=== PATIENT | male | born 1965 | race Two or more races ===

== ENCOUNTER 2021-12-28 18:37 | Inpatient (IN) | payer MEDICARE ==
[~2021-12-28] VITALS: Ht 152.4 cm; Wt 60.4 kg
[2021-12-28] MEDS ORDERED: ACCU-CHEK COMFORT CURVE STRIP VI ONE (19:00)
[2021-12-28] MEDS ORDERED: SODIUM CHLORIDE 0.9% 500 ML IV ONE (19:45)
[2021-12-28 20:24] LABS: Hematocrit 30.9 % (41.0-53.0); Hemoglobin 8.9 g/dL (13.5-17.5); Mean Corpuscular Hemoglobin 21.8 pg (28.0-32.0); Mean Corpuscular Hgb Conc. 28.9 g/dL (32.0-36.0); Mean Corpuscular Volume 75.6 fL (80.0-100.0); Red Blood Cells 4.09 10^6/uL (4.5-5.90); White Blood Cell 4.3 10^3/uL (4.4-10.8)
[2021-12-28 20:37] LABS: Red Cell Distribution Width 25.1 % (11.8-14.3)
[2021-12-28 20:38] LABS: Albumin 2.7 g/dL (3.4-5.0); Calcium 8.3 mg/dL (8.5-10.1); Potassium 4.5 mmol/L (3.5-5.1)
[2021-12-28 20:39] LABS: Basophils % (manual) 0 (0.0-2.0); Blast Cells 0; Eosinophils % (manual) 0 (0-7); Metamyelocytes % 0; Myelocytes % 0; Promyelocytes % 0; Reactive Lymphocytes 0
[2021-12-28 20:41] LABS: Bilirubin, Total 0.4 mg/dL (0.2-1.0); Total Protein 6.3 g/dL (6.4-8.2)
[2021-12-28 21:38] LABS: Band Neutrophils % (manual) 3; Lymphocytes % (manual) 20 (10.0-50.0); Monocytes % (manual) 2 (0-12)
[2021-12-28] MEDS ORDERED: ONDANSETRON HCL 4 MG/2 ML VIAL IV PRN (21:45)
[2021-12-28] MEDS ORDERED: ACETAMINOPHEN 325 MG TAB PO PRN ×2 (21:45→22:00)
[2021-12-28] MEDS ORDERED: cefTRIAXone 1GM/50ML D5W 50 ML IV ONE (22:00)
[2021-12-28] MEDS: SOD CHL 0.45% 1,000 ML IV SCH (22:17)
[2021-12-28 22:43] LABS: Urine Bacteria NONE SEEN /hpf (None Seen); Urine Blood 1+ /uL (Negative); Urine Hyaline Cast FEW /lpf (0 - 2); Urine Specific Gravity 1.017 (1.001-1.035); Urine WBC 1 /hpf (0 - 3)
[2021-12-28] MEDS ORDERED: AZITHROMYCIN 500MG/ 250ML 250 ML IV ONE (22:45)
[2021-12-28 23:02] LABS: Amphetamine Screen, Urine NEGATIVE (NEGATIVE); Barbiturate Scree,Urine NEGATIVE (NEGATIVE); Benzodiazephine Screen, Urine NEGATIVE (NEGATIVE); Cannabinoid Screen, Urine NEGATIVE (NEGATIVE); Cocaine Screen, Urine NEGATIVE (NEGATIVE); Opiate Scree,Urine NEGATIVE (NEGATIVE); Phencyclidine Screen, Urine NEGATIVE (NEGATIVE)
[2021-12-28] MEDS: DOCUSATE SOD 100 MG CAP PO SCH (23:55)
[2021-12-29 06:02] LABS: Basophils # (auto) 0 10 ^3/uL (0-0.2); Eosinophils # (auto) 0 10 ^3/uL (0-0.8); Eosinophils % (auto) 0.1 % (0.0-7.0); Hemoglobin 8.1 g/dL (13.5-17.5)
[2021-12-29 06:05] LABS: Basophils % (auto) 0.9 % (0.0-2.0); Hematocrit 26.6 % (41.0-53.0); Lymphocytes # (auto) 0.6 10 ^3/uL (0.4-5.4); Lymphocytes % (auto) 13.9 % (10.0-50.0); Mean Corpuscular Hemoglobin 22.7 pg (28.0-32.0); Mean Corpuscular Hgb Conc. 30.5 g/dL (32.0-36.0); Mean Corpuscular Volume 74.6 fL (80.0-100.0); Monocytes # (auto) 0.4 10 ^3/uL (0-1.3); Monocytes % (auto) 8.5 % (0.0-12.0); Neutrophils # (auto) 3.2 10 ^3/uL (1.6-8.6); Neutrophils % (auto) 76.6 % (37.0-80.0); Red Blood Cells 3.57 10^6/uL (4.5-5.90); White Blood Cell 4.2 10^3/uL (4.4-10.8)
[2021-12-29 06:14] LABS: Calcium 7.8 mg/dL (8.5-10.1); Potassium 4.8 mmol/L (3.5-5.1)
[2021-12-29 06:18] LABS: Albumin 2.6 g/dL (3.4-5.0); BUN/Creatinine Ratio 83.5; Bilirubin, Total 0.3 mg/dL (0.2-1.0); Total Protein 6.2 g/dL (6.4-8.2)
[2021-12-29] MEDS: cefTRIAXone 1GM/50ML D5W 50 ML IV SCH (09:35)
[2021-12-29] MEDS: PANTOPRAZOLE 40 MG TAB PO SCH (09:35)
[2021-12-29] MEDS: DOCUSATE SOD 100 MG CAP PO SCH ×2 (09:35→22:00)
[2021-12-29] MEDS: ENOXAPARIN SOD 40 MG/0.4 ML SYRINGE SC SCH (09:39)
[2021-12-29] MEDS: SOD CHL 0.45% 1,000 ML IV SCH (10:51)
[2021-12-29] MEDS: D5W/SOD CHL 0.45% 1,000 ML IV SCH (13:07)
[2021-12-29 20:47] LABS: Free T4 (Free Thyroxine) 0.76 ng/dL (0.89-1.76)
[2021-12-29 20:48] LABS: Folate (Folic Acid) 6.82 ng/mL (5.38-24)
[2021-12-29] MEDS: LACTULOSE 20Gm/30ML SOLN PO SCH (22:00)
[2021-12-29] MEDS: AZITHROMYCIN 500MG/ 250ML 250 ML IV SCH (22:19)
[2021-12-30 01:39] VITALS: BP 99/65
[2021-12-30] MEDS: D5W/SOD CHL 0.45% 1,000 ML IV SCH ×2 (03:15→12:52)
[2021-12-30 04:55] VITALS: BP 96/55
[2021-12-30 09:28] VITALS: BP 101/57
[2021-12-30 09:29] LABS: Hematocrit 27.7 % (41.0-53.0); Hemoglobin 8.3 g/dL (13.5-17.5); Mean Corpuscular Hemoglobin 22.3 pg (28.0-32.0); Mean Corpuscular Volume 74.4 fL (80.0-100.0); Red Blood Cells 3.73 10^6/uL (4.5-5.90); White Blood Cell 3.7 10^3/uL (4.4-10.8)
[2021-12-30 09:32] LABS: Red Cell Distribution Width 25.5 % (11.8-14.3)
[2021-12-30 09:33] LABS: Basophils % (manual) 0 (0.0-2.0); Blast Cells 0; Eosinophils % (manual) 0 (0-7); Metamyelocytes % 0; Myelocytes % 0; Promyelocytes % 0; Reactive Lymphocytes 0
[2021-12-30] MEDS: PANTOPRAZOLE 40 MG TAB PO SCH (09:38)
[2021-12-30] MEDS: LACTULOSE 20Gm/30ML SOLN PO SCH ×2 (09:38→21:42)
[2021-12-30] MEDS: ENOXAPARIN SOD 40 MG/0.4 ML SYRINGE SC SCH (09:38)
[2021-12-30] MEDS: cefTRIAXone 1GM/50ML D5W 50 ML IV SCH (09:38)
[2021-12-30] MEDS: DOCUSATE SOD 100 MG CAP PO SCH ×2 (09:38→21:42)
[2021-12-30 10:32] LABS: Band Neutrophils % (manual) 25; Lymphocytes % (manual) 33 (10.0-50.0); Monocytes % (manual) 4 (0-12)
[2021-12-30 16:11] LABS: Albumin 2.4 g/dL (3.4-5.0); Calcium 7.3 mg/dL (8.5-10.1); Magnesium 2.9 mg/dL (1.6-2.6); Potassium 4.3 mmol/L (3.5-5.1)
[2021-12-30 16:23] LABS: Bilirubin, Total 0.3 mg/dL (0.2-1.0); Phosphorus 4.2 mg/dL (2.5-4.90); Total Protein 5.5 g/dL (6.4-8.2)
[2021-12-30 17:08] LABS: BUN/Creatinine Ratio 90.4
[2021-12-30] MEDS ORDERED: CLINIMIX PER PHARMACY 0 ML IV SCH (17:45)
[2021-12-30] MEDS: AMINO ACID INFUSION IN D10W 1,000 ML IV SCH (19:55)
[2021-12-30] MEDS: FAMOTIDINE (10MG/ML) 2ML VL IV SCH (21:41)
[2021-12-30] MEDS: AZITHROMYCIN 500MG/ 250ML 250 ML IV SCH (21:42)
[2021-12-30 22:00] VITALS: BP 114/67
[2021-12-30] MEDS: InsuLIN REG 1unit/0.01ml Soln (100units/ml) SC SCH (23:46)
[2021-12-30] MEDS: ACCU-CHEK COMFORT CURVE STRIP VI SCH (23:46)
[2021-12-31] MEDS ORDERED: DEXTROSE (50%) 50ML SYRG IV SCH
[2021-12-31 05:00] VITALS: BP 89/54
[2021-12-31] MEDS: ACCU-CHEK COMFORT CURVE STRIP VI SCH ×3 (05:47→18:23)
[2021-12-31] MEDS: D5W/SOD CHL 0.45% 1,000 ML IV SCH ×3 (05:47→22:45)
[2021-12-31] MEDS: InsuLIN REG 1unit/0.01ml Soln (100units/ml) SC SCH ×3 (05:47→18:00)
[2021-12-31 07:54] LABS: Hematocrit 26.6 % (41.0-53.0); Mean Corpuscular Hemoglobin 22.6 pg (28.0-32.0); Mean Corpuscular Hgb Conc. 30.2 g/dL (32.0-36.0); Mean Corpuscular Volume 74.8 fL (80.0-100.0); Red Blood Cells 3.55 10^6/uL (4.5-5.90); Red Cell Distribution Width 25.3 % (11.8-14.3); White Blood Cell 2.8 10^3/uL (4.4-10.8)
[2021-12-31 08:06] LABS: Basophils % (manual) 0 (0.0-2.0); Blast Cells 0; Eosinophils % (manual) 0 (0-7); Metamyelocytes % 0; Myelocytes % 0; Promyelocytes % 0; Reactive Lymphocytes 0
[2021-12-31 09:18] VITALS: BP 83/47
[2021-12-31] MEDS: PANTOPRAZOLE 40 MG TAB PO SCH ×2 (10:00→10:27)
[2021-12-31] MEDS: DOCUSATE SOD 100 MG CAP PO SCH ×3 (10:00→22:00)
[2021-12-31] MEDS: LACTULOSE 20Gm/30ML SOLN PO SCH ×3 (10:00→22:00)
[2021-12-31 10:16] LABS: Potassium 3.8 mmol/L (3.5-5.1)
[2021-12-31] MEDS: cefTRIAXone 1GM/50ML D5W 50 ML IV SCH (10:26)
[2021-12-31] MEDS: FAMOTIDINE (10MG/ML) 2ML VL IV SCH ×2 (10:27→22:52)
[2021-12-31 10:30] LABS: Albumin 2.3 g/dL (3.4-5.0); BUN/Creatinine Ratio 93.3; Bilirubin, Total 0.2 mg/dL (0.2-1.0); Calcium 7.6 mg/dL (8.5-10.1); Magnesium 2.6 mg/dL (1.6-2.6); Phosphorus 2.7 mg/dL (2.5-4.90); Total Protein 5.6 g/dL (6.4-8.2)
[2021-12-31 13:03] VITALS: BP 129/72
[2021-12-31 14:51] LABS: Band Neutrophils % (manual) 8; Lymphocytes % (manual) 18 (10.0-50.0)
[2021-12-31 14:52] LABS: Monocytes % (manual) 1 (0-12)
[2021-12-31 17:26] VITALS: BP 135/89
[2021-12-31] MEDS: AMINO ACID INFUSION IN D10W 1,000 ML IV SCH (20:54)
[2021-12-31 21:38] VITALS: BP 122/82
[2021-12-31] MEDS: AZITHROMYCIN 500MG/ 250ML 250 ML IV SCH (22:51)
[2022-01-01] VITALS (28 sets, daily range): BP systolic 77–119; BP diastolic 42–79
[2022-01-01] MEDS: ACCU-CHEK COMFORT CURVE STRIP VI SCH ×4 (00:15→17:51)
[2022-01-01] MEDS: InsuLIN REG 1unit/0.01ml Soln (100units/ml) SC SCH ×4 (00:18→17:51)
[2022-01-01 08:24] LABS: Calcium 7.2 mg/dL (8.5-10.1); Magnesium 2.8 mg/dL (1.6-2.6); Potassium 3.5 mmol/L (3.5-5.1)
[2022-01-01 08:35] LABS: Bilirubin, Total 0.2 mg/dL (0.2-1.0); Phosphorus 1.7 mg/dL (2.5-4.90); Total Protein 5.2 g/dL (6.4-8.2)
[2022-01-01] MEDS: D5W/SOD CHL 0.45% 1,000 ML IV SCH ×2 (08:45→23:00)
[2022-01-01] MEDS: DOCUSATE SOD 100 MG CAP PO SCH ×2 (09:11→22:00)
[2022-01-01] MEDS: PANTOPRAZOLE 40 MG TAB PO SCH (09:11)
[2022-01-01] MEDS: FAMOTIDINE (10MG/ML) 2ML VL IV SCH ×2 (09:11→22:38)
[2022-01-01] MEDS: LACTULOSE 20Gm/30ML SOLN PO SCH ×2 (09:11→22:00)
[2022-01-01] MEDS: cefTRIAXone 1GM/50ML D5W 50 ML IV SCH (09:11)
[2022-01-01] MEDS ORDERED: POTASSIUM PHOSPHATE 26.4 MEQ in SODIUM CHL 0.9% 100 ML IV ONE (10:30)
[2022-01-01 11:38] LABS: Basophils # (auto) 0 10 ^3/uL (0-0.2); Basophils % (auto) 0.7 % (0.0-2.0); Eosinophils # (auto) 0 10 ^3/uL (0-0.8); Eosinophils % (auto) 0.3 % (0.0-7.0); Hematocrit 21.8 % (41.0-53.0); Lymphocytes # (auto) 0.1 10 ^3/uL (0.4-5.4); Lymphocytes % (auto) 5.8 % (10.0-50.0); Mean Corpuscular Hemoglobin 22.8 pg (28.0-32.0); Mean Corpuscular Hgb Conc. 31.4 g/dL (32.0-36.0); Mean Corpuscular Volume 72.6 fL (80.0-100.0); Monocytes # (auto) 0.1 10 ^3/uL (0-1.3); Monocytes % (auto) 6.3 % (0.0-12.0); Neutrophils # (auto) 1.9 10 ^3/uL (1.6-8.6); Neutrophils % (auto) 86.9 % (37.0-80.0); Nucleated Red Blood Cells % 0.1 %; Red Blood Cells 3.01 10^6/uL (4.5-5.90); White Blood Cell 2.2 10^3/uL (4.4-10.8)
[2022-01-01 11:43] LABS: Hemoglobin 6.9 g/dL (13.5-17.5); Red Cell Distribution Width 24.6 % (11.8-14.3)
[2022-01-01 12:50] LABS: Hepatitis C Antibody Negative (Negative)
[2022-01-01 13:03] LABS: Hepatitis A Ab IgM Negative
[2022-01-01 18:25] LABS: Basophils # (auto) 0 10 ^3/uL (0-0.2); Eosinophils # (auto) 0 10 ^3/uL (0-0.8); Hemoglobin 7.9 g/dL (13.5-17.5); Lymphocytes # (auto) 0.1 10 ^3/uL (0.4-5.4); Nucleated Red Blood Cells % 0.3 %; White Blood Cell 2.2 10^3/uL (4.4-10.8)
[2022-01-01 18:27] LABS: Basophils % (auto) 0.2 % (0.0-2.0); Eosinophils % (auto) 0.4 % (0.0-7.0); Hematocrit 25.4 % (41.0-53.0); Lymphocytes % (auto) 6.6 % (10.0-50.0); Mean Corpuscular Hemoglobin 22.6 pg (28.0-32.0); Mean Corpuscular Volume 72.9 fL (80.0-100.0); Monocytes # (auto) 0.2 10 ^3/uL (0-1.3); Neutrophils # (auto) 1.8 10 ^3/uL (1.6-8.6); Neutrophils % (auto) 82.8 % (37.0-80.0); Red Blood Cells 3.49 10^6/uL (4.5-5.90)
[2022-01-01 18:28] LABS: Red Cell Distribution Width 25.4 % (11.8-14.3)
[2022-01-01 18:42] LABS: INR 1.09 (0.9-1.15); Partial Thromboplastin Time 40.4 sec (24.6-33.4)
[2022-01-01 18:50] LABS: Albumin 2.1 g/dL (3.4-5.0); Calcium 7.6 mg/dL (8.5-10.1); Magnesium 2.8 mg/dL (1.6-2.6); Potassium 3.6 mmol/L (3.5-5.1)
[2022-01-01 18:51] LABS: % Iron Saturation 28.5 % (20-55)
[2022-01-01 18:55] LABS: BUN/Creatinine Ratio 84.7; Bilirubin, Total 0.2 mg/dL (0.2-1.0); Total Protein 5.4 g/dL (6.4-8.2)
[2022-01-01 19:17] LABS: Hepatitis B Core IgM Negative
[2022-01-01] MEDS: AMINO ACID INFUSION IN D10W 1,000 ML IV SCH (20:48)
[2022-01-01] MEDS: AZITHROMYCIN 500MG/ 250ML 250 ML IV SCH (22:38)
[2022-01-02] VITALS (45 sets, daily range): BP systolic 87–131; BP diastolic 54–89
[2022-01-02] MEDS: ACCU-CHEK COMFORT CURVE STRIP VI SCH ×2 (01:28→06:28)
[2022-01-02] MEDS: InsuLIN REG 1unit/0.01ml Soln (100units/ml) SC SCH ×2 (01:29→06:00)
[2022-01-02 04:15] LABS: Basophils # (auto) 0 10 ^3/uL (0-0.2); Eosinophils # (auto) 0 10 ^3/uL (0-0.8); Eosinophils % (auto) 0.2 % (0.0-7.0); Mean Corpuscular Hgb Conc. 32.3 g/dL (32.0-36.0); Monocytes # (auto) 0.2 10 ^3/uL (0-1.3)
[2022-01-02 04:18] LABS: Basophils % (auto) 0.2 % (0.0-2.0); Hematocrit 26.3 % (41.0-53.0); Hemoglobin 8.5 g/dL (13.5-17.5); Lymphocytes # (auto) 0.2 10 ^3/uL (0.4-5.4); Lymphocytes % (auto) 5.7 % (10.0-50.0); Mean Corpuscular Hemoglobin 24.1 pg (28.0-32.0); Mean Corpuscular Volume 74.5 fL (80.0-100.0); Monocytes % (auto) 7.5 % (0.0-12.0); Neutrophils # (auto) 2.6 10 ^3/uL (1.6-8.6); Neutrophils % (auto) 86.4 % (37.0-80.0); Nucleated Red Blood Cells % 0.4 %; Potassium 3.3 mmol/L (3.5-5.1); Red Blood Cells 3.53 10^6/uL (4.5-5.90)
[2022-01-02 04:28] LABS: BUN/Creatinine Ratio 67.2; Bilirubin, Total 0.2 mg/dL (0.2-1.0); Calcium 7.6 mg/dL (8.5-10.1); Magnesium 2.4 mg/dL (1.6-2.6); Total Protein 5.1 g/dL (6.4-8.2)
[2022-01-02] MEDS ORDERED: POTASSIUM CHLORIDE 40 MEQ in D5W 5% 1,000 ML IV SCH (05:00)
[2022-01-02 05:28] LABS: Red Cell Distribution Width 24.5 % (11.8-14.3)
[2022-01-02] MEDS ORDERED: POTASSIUM CHL 20MEQ/100ML 200 ML IV ONE (06:01)
[2022-01-02] MEDS: AMINO ACID INFUSION IN D10W 1,000 ML IV SCH (08:41)
[2022-01-02] MEDS: cefTRIAXone 1GM/50ML D5W 50 ML IV SCH (08:52)
[2022-01-02] MEDS: FAMOTIDINE (10MG/ML) 2ML VL IV SCH (09:59)
[2022-01-02] MEDS: DOCUSATE SOD 100 MG CAP PO SCH ×2 (10:00→21:50)
[2022-01-02] MEDS: LACTULOSE 20Gm/30ML SOLN PO SCH ×2 (10:00→21:50)
[2022-01-02] MEDS: PANTOPRAZOLE 40 MG TAB PO SCH (10:00)
[2022-01-02] MEDS ORDERED: levoFLOXacin 500MG 100 ML IV STA (10:55)
[2022-01-02] MEDS: D5W/SOD CHL 0.45% 1,000 ML IV SCH ×2 (11:23→21:18)
[2022-01-02] MEDS ORDERED: POTASSIUM PHOSPHATE 44 MEQ in D5W 5% 250 ML IV ONE (11:30)
[2022-01-02 17:02] LABS: Basophils # (auto) 0 10 ^3/uL (0-0.2); Basophils % (auto) 0.2 % (0.0-2.0); Eosinophils # (auto) 0 10 ^3/uL (0-0.8); Eosinophils % (auto) 0.1 % (0.0-7.0); Hematocrit 25.1 % (41.0-53.0); Lymphocytes # (auto) 0.2 10 ^3/uL (0.4-5.4); Lymphocytes % (auto) 6.8 % (10.0-50.0); Mean Corpuscular Hemoglobin 23.7 pg (28.0-32.0); Mean Corpuscular Hgb Conc. 31.8 g/dL (32.0-36.0); Mean Corpuscular Volume 74.4 fL (80.0-100.0); Monocytes # (auto) 0.2 10 ^3/uL (0-1.3); Neutrophils # (auto) 2.3 10 ^3/uL (1.6-8.6); Neutrophils % (auto) 85.9 % (37.0-80.0); Nucleated Red Blood Cells % 0.2 %; Red Blood Cells 3.37 10^6/uL (4.5-5.90); White Blood Cell 2.7 10^3/uL (4.4-10.8)
[2022-01-02 17:03] LABS: Red Cell Distribution Width 24.1 % (11.8-14.3)
[2022-01-02 17:17] LABS: Albumin 1.8 g/dL (3.4-5.0); Calcium 7.5 mg/dL (8.5-10.1); Magnesium 2.2 mg/dL (1.6-2.6); Potassium 4.4 mmol/L (3.5-5.1)
[2022-01-02 17:18] LABS: BUN/Creatinine Ratio 71.8
[2022-01-02 17:31] LABS: Pre Albumin 5.8 mg/dL (20.0-40.0)
[2022-01-02 17:35] LABS: % Iron Saturation 39.5 % (20-55)
[2022-01-02 17:40] LABS: CRP High Sensitivity 0.723 mg/dL (< 0.3)
[2022-01-02 17:52] LABS: Bilirubin, Total 0.2 mg/dL (0.2-1.0); Total Protein 4.7 g/dL (6.4-8.2)
[2022-01-02 18:02] LABS: Free T4 (Free Thyroxine) 0.85 ng/dL (0.89-1.76)
[2022-01-02 18:03] LABS: Ferritin 70.3 ng/mL (10-322)
[2022-01-02 19:00] LABS: Thyroid Stimulating Hormone 3.06 uIU/mL (0.358-3.74)
[2022-01-03] VITALS (24 sets, daily range): BP systolic 95–127; BP diastolic 63–89
[2022-01-03 05:45] LABS: Basophils # (auto) 0 10 ^3/uL (0-0.2); Eosinophils # (auto) 0 10 ^3/uL (0-0.8); Hemoglobin 8.2 g/dL (13.5-17.5); Lymphocytes # (auto) 0.3 10 ^3/uL (0.4-5.4); Mean Corpuscular Volume 77.4 fL (80.0-100.0); Monocytes # (auto) 0.2 10 ^3/uL (0-1.3); Neutrophils # (auto) 2.2 10 ^3/uL (1.6-8.6); White Blood Cell 2.7 10^3/uL (4.4-10.8)
[2022-01-03 05:48] LABS: Basophils % (auto) 0.4 % (0.0-2.0); Eosinophils % (auto) 0.9 % (0.0-7.0); Hematocrit 26.1 % (41.0-53.0); Lymphocytes % (auto) 12.1 % (10.0-50.0); Mean Corpuscular Hemoglobin 24.4 pg (28.0-32.0); Mean Corpuscular Hgb Conc. 31.5 g/dL (32.0-36.0); Monocytes % (auto) 6.8 % (0.0-12.0); Neutrophils % (auto) 79.8 % (37.0-80.0); Nucleated Red Blood Cells % 0.1 %; Red Blood Cells 3.37 10^6/uL (4.5-5.90)
[2022-01-03 06:05] LABS: Red Cell Distribution Width 24.3 % (11.8-14.3)
[2022-01-03 06:22] LABS: Potassium 4.1 mmol/L (3.5-5.1)
[2022-01-03 06:26] LABS: Albumin 1.8 g/dL (3.4-5.0); BUN/Creatinine Ratio 52.5; Calcium 7.6 mg/dL (8.5-10.1); Magnesium 2.4 mg/dL (1.6-2.6)
[2022-01-03 06:28] LABS: Bilirubin, Total 0.2 mg/dL (0.2-1.0); Phosphorus 1.1 mg/dL (2.5-4.90); Total Protein 4.8 g/dL (6.4-8.2)
[2022-01-03] MEDS: D5W/SOD CHL 0.45% 1,000 ML IV SCH ×3 (06:44→19:51)
[2022-01-03] MEDS: LACTULOSE 20Gm/30ML SOLN PO SCH ×2 (09:23→22:00)
[2022-01-03] MEDS: DOCUSATE SOD 100 MG CAP PO SCH ×2 (09:23→22:00)
[2022-01-03] MEDS: levoFLOXacin 500MG 100 ML IV SCH (09:23)
[2022-01-03] MEDS: PANTOPRAZOLE 40 MG TAB PO SCH (10:00)
[2022-01-03] MEDS ORDERED: POTASSIUM PHOSPHATE 44 MEQ in D5W 5% 250 ML IV ONE (11:00)
[2022-01-03] MEDS ORDERED: PANTOPRAZOLE 40 MG/10 ML VIAL INJ IV ONE (12:00)
[2022-01-03] MEDS: AMINO ACID INFUSION IN D10W 1,000 ML IV SCH (13:22)
[2022-01-03 14:52] LABS: Cholesterol 96 mg/dL (< 200)
[2022-01-03 14:55] LABS: HDL Cholesterol 68 mg/dL (40-59); LDL Cholesterol 29 mg/dL (< 100); Triglycerides 37 mg/dL (< 150)
[2022-01-04] VITALS (23 sets, daily range): BP systolic 80–117; BP diastolic 53–82
[2022-01-04] MEDS: AMINO ACID INFUSION IN D10W 1,000 ML IV SCH (01:00)
[2022-01-04] MEDS: D5W/SOD CHL 0.45% 1,000 ML IV SCH ×2 (05:20→18:09)
[2022-01-04 06:43] LABS: Potassium 3.9 mmol/L (3.5-5.1)
[2022-01-04 06:47] LABS: Albumin 1.7 g/dL (3.4-5.0); BUN/Creatinine Ratio 57.7; Calcium 7.6 mg/dL (8.5-10.1); Magnesium 2.1 mg/dL (1.6-2.6)
[2022-01-04 07:01] LABS: Bilirubin, Total 0.3 mg/dL (0.2-1.0); Phosphorus 1.3 mg/dL (2.5-4.90); Total Protein 4.6 g/dL (6.4-8.2)
[2022-01-04] MEDS: LACTULOSE 20Gm/30ML SOLN PO SCH ×2 (07:33→21:38)
[2022-01-04] MEDS: DOCUSATE SOD 100 MG CAP PO SCH ×2 (07:34→21:39)
[2022-01-04] MEDS: levoFLOXacin 500MG 100 ML IV SCH (08:32)
[2022-01-04] MEDS ORDERED: PANTOPRAZOLE 40 MG/10 ML VIAL INJ IV SCH (10:00)
[2022-01-04] MEDS ORDERED: POTASSIUM PHOSPHATE 26.4 MEQ in SODIUM CHL 0.9% 100 ML IV ONE (11:15)
[2022-01-04 12:45] LABS: Potassium 3.8 mmol/L (3.5-5.1)
[2022-01-04 12:46] LABS: Basophils # (auto) 0 10 ^3/uL (0-0.2); Basophils % (auto) 0.1 % (0.0-2.0); Eosinophils # (auto) 0 10 ^3/uL (0-0.8); Eosinophils % (auto) 0.5 % (0.0-7.0); Hematocrit 23.2 % (41.0-53.0); Hemoglobin 7.5 g/dL (13.5-17.5); Lymphocytes # (auto) 0.5 10 ^3/uL (0.4-5.4); Lymphocytes % (auto) 16.1 % (10.0-50.0); Mean Corpuscular Hemoglobin 24.1 pg (28.0-32.0); Mean Corpuscular Hgb Conc. 32.2 g/dL (32.0-36.0); Mean Corpuscular Volume 74.9 fL (80.0-100.0); Monocytes # (auto) 0.2 10 ^3/uL (0-1.3); Monocytes % (auto) 7.2 % (0.0-12.0); Neutrophils # (auto) 2.5 10 ^3/uL (1.6-8.6); Neutrophils % (auto) 76.1 % (37.0-80.0); Nucleated Red Blood Cells % 0.1 %; White Blood Cell 3.3 10^3/uL (4.4-10.8)
[2022-01-04 12:53] LABS: Red Cell Distribution Width 24.4 % (11.8-14.3)
[2022-01-04 12:57] LABS: Albumin 1.6 g/dL (3.4-5.0); BUN/Creatinine Ratio 48.3; Bilirubin, Total 0.3 mg/dL (0.2-1.0); Calcium 7.3 mg/dL (8.5-10.1); Total Protein 4.5 g/dL (6.4-8.2)
[2022-01-04 15:39] LABS: Folate (Folic Acid) 3.45 ng/mL (5.38-24)
[2022-01-04] MEDS: CLINIMIX PER PHARMACY IV NR (20:00)
[2022-01-05] VITALS (19 sets, daily range): BP systolic 98–124; BP diastolic 61–81
[2022-01-05] MEDS: D5W/SOD CHL 0.45% 1,000 ML IV SCH ×4 (03:00→20:21)
[2022-01-05 05:21] LABS: Basophils # (auto) 0 10 ^3/uL (0-0.2); Basophils % (auto) 0.1 % (0.0-2.0); Eosinophils # (auto) 0 10 ^3/uL (0-0.8); Eosinophils % (auto) 0.2 % (0.0-7.0); Hematocrit 23.7 % (41.0-53.0); Hemoglobin 7.8 g/dL (13.5-17.5); Lymphocytes # (auto) 0.6 10 ^3/uL (0.4-5.4); Lymphocytes % (auto) 14.5 % (10.0-50.0); Mean Corpuscular Hemoglobin 24.2 pg (28.0-32.0); Mean Corpuscular Hgb Conc. 32.8 g/dL (32.0-36.0); Mean Corpuscular Volume 73.8 fL (80.0-100.0); Monocytes # (auto) 0.2 10 ^3/uL (0-1.3); Monocytes % (auto) 6.3 % (0.0-12.0); Neutrophils # (auto) 3.1 10 ^3/uL (1.6-8.6); Neutrophils % (auto) 78.9 % (37.0-80.0); Nucleated Red Blood Cells % 0.2 %; Red Blood Cells 3.21 10^6/uL (4.5-5.90); White Blood Cell 3.9 10^3/uL (4.4-10.8)
[2022-01-05 05:34] LABS: Potassium 3.8 mmol/L (3.5-5.1)
[2022-01-05 05:42] LABS: Albumin 1.6 g/dL (3.4-5.0); Bilirubin, Total 0.3 mg/dL (0.2-1.0); Calcium 7.5 mg/dL (8.5-10.1); Magnesium 1.9 mg/dL (1.6-2.6); Phosphorus 1.3 mg/dL (2.5-4.90); Total Protein 4.7 g/dL (6.4-8.2)
[2022-01-05] MEDS: levoFLOXacin 500MG 100 ML IV SCH (08:50)
[2022-01-05] MEDS: LACTULOSE 20Gm/30ML SOLN PO SCH ×2 (09:00→21:27)
[2022-01-05] MEDS: DOCUSATE SOD 100 MG CAP PO SCH ×2 (09:00→21:27)
[2022-01-05] MEDS ORDERED: POTASSIUM PHOSPHATE 44 MEQ in D5W 5% 250 ML IV ONE (09:15)
[2022-01-05] MEDS: FAMOTIDINE INJECTION 40 MG in SODIUM CHL 0.9% 100 ML IV SCH (10:20)
[2022-01-05] MEDS ORDERED: POTASSIUM PHOSPHATE 26.4 MEQ in SODIUM CHL 0.9% 100 ML IV ONE (11:15)
[2022-01-05] MEDS: MAGNESIUM SULFATE 1GM/100ML 100 ML IV SCH ×3 (14:35→16:30)
[2022-01-05] MEDS: AMINO ACID INFUSION IN D10W 1,000 ML IV SCH (20:16)
[2022-01-05] MEDS: CLINIMIX PER PHARMACY IV NR (20:16)
[2022-01-06 05:00] VITALS: BP 119/84
[2022-01-06 06:20] LABS: Hemoglobin 7.3 g/dL (13.5-17.5); White Blood Cell 3.5 10^3/uL (4.4-10.8)
[2022-01-06 06:23] LABS: Hematocrit 22.2 % (41.0-53.0); Mean Corpuscular Hemoglobin 24.9 pg (28.0-32.0); Mean Corpuscular Hgb Conc. 32.9 g/dL (32.0-36.0); Mean Corpuscular Volume 75.6 fL (80.0-100.0); Red Blood Cells 2.94 10^6/uL (4.5-5.90)
[2022-01-06 06:35] LABS: Red Cell Distribution Width 24.1 % (11.8-14.3)
[2022-01-06 06:36] LABS: Basophils % (manual) 0 (0.0-2.0); Blast Cells 0; Eosinophils % (manual) 0 (0-7); Metamyelocytes % 0; Monocytes % (manual) 0 (0-12); Myelocytes % 0; Promyelocytes % 0; Reactive Lymphocytes 0
[2022-01-06 06:42] LABS: Potassium 4.1 mmol/L (3.5-5.1)
[2022-01-06 07:07] LABS: Albumin 1.6 g/dL (3.4-5.0); Bilirubin, Total 0.3 mg/dL (0.2-1.0); Calcium 7.3 mg/dL (8.5-10.1); Magnesium 2.5 mg/dL (1.6-2.6); Phosphorus 1.7 mg/dL (2.5-4.90); Total Protein 4.4 g/dL (6.4-8.2)
[2022-01-06 07:34] LABS: Band Neutrophils % (manual) 18; Lymphocytes % (manual) 14 (10.0-50.0)
[2022-01-06 09:00] VITALS: BP 113/75
[2022-01-06] MEDS ORDERED: SODIUM PHOSP 40 MEQ in D5W 5% 250 ML IV ONE (09:00)
[2022-01-06] MEDS: DOCUSATE SOD 100 MG CAP PO SCH ×3 (10:00→22:00)
[2022-01-06] MEDS: levoFLOXacin 500MG 100 ML IV SCH (10:24)
[2022-01-06] MEDS: LACTULOSE 20Gm/30ML SOLN PO SCH ×2 (10:25→23:21)
[2022-01-06] MEDS: FAMOTIDINE INJECTION 40 MG in SODIUM CHL 0.9% 100 ML IV SCH (10:50)
[2022-01-06 13:00] VITALS: BP 128/80
[2022-01-06] MEDS: D5W/SOD CHL 0.45% 1,000 ML IV SCH (15:54)
[2022-01-06 16:49] VITALS: BP 141/80
[2022-01-06] MEDS: AMINO ACID INFUSION IN D10W 1,000 ML IV SCH (21:38)
[2022-01-06 22:00] VITALS: BP 130/90
[2022-01-07] MEDS: D5W/SOD CHL 0.45% 1,000 ML IV SCH ×2 (03:48→14:45)
[2022-01-07 05:00] VITALS: BP 129/83
[2022-01-07 08:11] LABS: Basophils # (auto) 0 10 ^3/uL (0-0.2); Eosinophils # (auto) 0 10 ^3/uL (0-0.8); Monocytes # (auto) 0.1 10 ^3/uL (0-1.3); White Blood Cell 4.1 10^3/uL (4.4-10.8)
[2022-01-07 08:12] LABS: Basophils % (auto) 0.4 % (0.0-2.0); Eosinophils % (auto) 0.7 % (0.0-7.0); Hematocrit 27.4 % (41.0-53.0); Hemoglobin 8.8 g/dL (13.5-17.5); Lymphocytes # (auto) 0.4 10 ^3/uL (0.4-5.4); Lymphocytes % (auto) 10.7 % (10.0-50.0); Mean Corpuscular Hemoglobin 24.1 pg (28.0-32.0); Mean Corpuscular Hgb Conc. 32.2 g/dL (32.0-36.0); Mean Corpuscular Volume 74.9 fL (80.0-100.0); Neutrophils # (auto) 3.6 10 ^3/uL (1.6-8.6); Neutrophils % (auto) 86.2 % (37.0-80.0); Nucleated Red Blood Cells % 0.2 %; Red Blood Cells 3.66 10^6/uL (4.5-5.90)
[2022-01-07 09:00] VITALS: BP 150/99
[2022-01-07 09:13] LABS: Albumin 1.9 g/dL (3.4-5.0); Calcium 7.6 mg/dL (8.5-10.1); Magnesium 1.9 mg/dL (1.6-2.6); Potassium 3.6 mmol/L (3.5-5.1)
[2022-01-07 09:16] LABS: BUN/Creatinine Ratio 42.9; Bilirubin, Total 0.4 mg/dL (0.2-1.0); Phosphorus 1.7 mg/dL (2.5-4.90); Total Protein 5.4 g/dL (6.4-8.2)
[2022-01-07] MEDS: FAMOTIDINE INJECTION 40 MG in SODIUM CHL 0.9% 100 ML IV SCH (10:00)
[2022-01-07] MEDS ORDERED: SODIUM PHOSPHATES 40 MEQ in D5W 5% 250 ML IV ONE (10:15)
[2022-01-07] MEDS: LACTULOSE 20Gm/30ML SOLN PO SCH ×2 (10:34→22:32)
[2022-01-07] MEDS: levoFLOXacin 500MG 100 ML IV SCH (10:34)
[2022-01-07] MEDS: DOCUSATE SOD 100 MG CAP PO SCH ×2 (10:34→22:33)
[2022-01-07] MEDS: MAGNESIUM SULFATE 1GM/100ML 100 ML IV SCH ×2 (11:00→12:00)
[2022-01-07] MEDS ORDERED: DEXTROSE (50%) 50ML SYRG IV SCH (11:30)
[2022-01-07] MEDS ORDERED: ACCU-CHEK COMFORT CURVE STRIP VI SCH (12:00)
[2022-01-07] MEDS ORDERED: InsuLIN REG 1unit/0.01ml Soln (100units/ml) SC SCH (12:00)
[2022-01-07 13:00] VITALS: BP 105/72
[2022-01-07] MEDS: AMINO ACID INFUSION IN D10W 1,000 ML IV SCH (20:54)
[2022-01-07 21:58] VITALS: BP 139/77
[2022-01-08] VITALS (10 sets, daily range): BP systolic 129–151; BP diastolic 62–89
[2022-01-08] MEDS: D5W/SOD CHL 0.45% 1,000 ML IV SCH ×2 (00:57→11:44)
[2022-01-08 07:31] LABS: Basophils # (auto) 0 10 ^3/uL (0-0.2); Eosinophils # (auto) 0 10 ^3/uL (0-0.8); Lymphocytes # (auto) 0.2 10 ^3/uL (0.4-5.4); Monocytes # (auto) 0.3 10 ^3/uL (0-1.3); Neutrophils # (auto) 8.1 10 ^3/uL (1.6-8.6); White Blood Cell 8.6 10^3/uL (4.4-10.8)
[2022-01-08 07:33] LABS: Basophils % (auto) 0.2 % (0.0-2.0); Eosinophils % (auto) 0.6 % (0.0-7.0); Hematocrit 20.7 % (41.0-53.0); Lymphocytes % (auto) 2.5 % (10.0-50.0); Mean Corpuscular Hemoglobin 24.7 pg (28.0-32.0); Mean Corpuscular Hgb Conc. 33.1 g/dL (32.0-36.0); Mean Corpuscular Volume 74.5 fL (80.0-100.0); Monocytes % (auto) 3.1 % (0.0-12.0); Neutrophils % (auto) 93.6 % (37.0-80.0); Red Blood Cells 2.77 10^6/uL (4.5-5.90)
[2022-01-08 07:47] LABS: Hemoglobin 6.8 g/dL (13.5-17.5)
[2022-01-08 08:25] LABS: Albumin 1.5 g/dL (3.4-5.0); Calcium 7.1 mg/dL (8.5-10.1); Potassium 3.4 mmol/L (3.5-5.1)
[2022-01-08 08:29] LABS: Bilirubin, Total 0.2 mg/dL (0.2-1.0); Phosphorus 1.9 mg/dL (2.5-4.90); Total Protein 4.4 g/dL (6.4-8.2)
[2022-01-08] MEDS ORDERED: POTASSIUM PHOSPHATE 44 MEQ in D5W 5% 250 ML IV ONE ×2 (09:15→12:00)
[2022-01-08] MEDS: FAMOTIDINE INJECTION 40 MG in SODIUM CHL 0.9% 100 ML IV SCH (10:00)
[2022-01-08 10:51] LABS: INR 1.12 (0.9-1.15)
[2022-01-08] MEDS: levoFLOXacin 500MG 100 ML IV SCH (11:43)
[2022-01-08] MEDS: LACTULOSE 20Gm/30ML SOLN PO SCH ×2 (11:44→21:27)
[2022-01-08] MEDS: DOCUSATE SOD 100 MG CAP PO SCH ×2 (11:44→21:27)
[2022-01-08] MEDS ORDERED: ONDANSETRON HCL 4 MG/2 ML VIAL IV PRN (14:45)
[2022-01-09] MEDS: AMINO ACID INFUSION IN D10W 1,000 ML IV SCH (02:58)
[2022-01-09 05:00] VITALS: BP 130/77
[2022-01-09 09:00] VITALS: BP 140/89
[2022-01-09] MEDS: DOCUSATE SOD 100 MG CAP PO SCH ×2 (09:22→22:00)
[2022-01-09] MEDS: LACTULOSE 20Gm/30ML SOLN PO SCH ×2 (09:22→22:00)
[2022-01-09] MEDS: levoFLOXacin 500MG 100 ML IV SCH (09:28)
[2022-01-09] MEDS: FAMOTIDINE INJECTION 40 MG in SODIUM CHL 0.9% 100 ML IV SCH (09:28)
[2022-01-09 10:25] LABS: Potassium 4.2 mmol/L (3.5-5.1)
[2022-01-09 10:42] LABS: Albumin 1.4 g/dL (3.4-5.0); BUN/Creatinine Ratio 88.9; Bilirubin, Total 0.5 mg/dL (0.2-1.0); Calcium 7.6 mg/dL (8.5-10.1); Magnesium 1.9 mg/dL (1.6-2.6); Phosphorus 1.9 mg/dL (2.5-4.90); Total Protein 4.5 g/dL (6.4-8.2)
[2022-01-09 12:39] LABS: Basophils # (auto) 0 10 ^3/uL (0-0.2); Basophils % (auto) 0.8 % (0.0-2.0); Eosinophils # (auto) 0 10 ^3/uL (0-0.8); Eosinophils % (auto) 0.4 % (0.0-7.0); Hematocrit 30.3 % (41.0-53.0); Hemoglobin 9.9 g/dL (13.5-17.5); Lymphocytes # (auto) 0.5 10 ^3/uL (0.4-5.4); Lymphocytes % (auto) 9.4 % (10.0-50.0); Mean Corpuscular Hemoglobin 24.7 pg (28.0-32.0); Mean Corpuscular Hgb Conc. 32.7 g/dL (32.0-36.0); Mean Corpuscular Volume 75.5 fL (80.0-100.0); Monocytes # (auto) 0.3 10 ^3/uL (0-1.3); Neutrophils # (auto) 4.7 10 ^3/uL (1.6-8.6); Neutrophils % (auto) 84.4 % (37.0-80.0); Nucleated Red Blood Cells % 0.1 %; Red Blood Cells 4.01 10^6/uL (4.5-5.90); Red Cell Distribution Width 21.3 % (11.8-14.3); White Blood Cell 5.6 10^3/uL (4.4-10.8)
[2022-01-09 13:00] VITALS: BP 144/93
[2022-01-09] MEDS ORDERED: SODIUM PHOSPHATES 40 MEQ in D5W 5% 250 ML IV ONE (13:00)
[2022-01-09 17:07] VITALS: BP 141/95
[2022-01-09 22:00] VITALS: BP 121/77
[2022-01-10] MEDS: AMINO ACID INFUSION IN D10W 1,000 ML IV SCH ×2 (00:22→22:24)
[2022-01-10 05:00] VITALS: BP 135/84
[2022-01-10 09:13] VITALS: BP 142/68
[2022-01-10] MEDS: LACTULOSE 20Gm/30ML SOLN PO SCH ×2 (10:00→22:00)
[2022-01-10] MEDS: DOCUSATE SOD 100 MG CAP PO SCH ×2 (10:00→22:00)
[2022-01-10] MEDS: levoFLOXacin 500MG 100 ML IV SCH (10:18)
[2022-01-10] MEDS: FAMOTIDINE INJECTION 40 MG in SODIUM CHL 0.9% 100 ML IV SCH (11:01)
[2022-01-10 13:00] VITALS: BP 129/77
[2022-01-10 13:56] LABS: Basophils # (auto) 0 10 ^3/uL (0-0.2); Eosinophils # (auto) 0 10 ^3/uL (0-0.8); Eosinophils % (auto) 0.4 % (0.0-7.0); Hemoglobin 9.5 g/dL (13.5-17.5); Mean Corpuscular Hgb Conc. 32.7 g/dL (32.0-36.0); Monocytes # (auto) 0.3 10 ^3/uL (0-1.3); White Blood Cell 3.9 10^3/uL (4.4-10.8)
[2022-01-10 13:58] LABS: Basophils % (auto) 0.2 % (0.0-2.0); Lymphocytes # (auto) 0.7 10 ^3/uL (0.4-5.4); Lymphocytes % (auto) 17.8 % (10.0-50.0); Mean Corpuscular Hemoglobin 24.9 pg (28.0-32.0); Mean Corpuscular Volume 76.3 fL (80.0-100.0); Monocytes % (auto) 6.8 % (0.0-12.0); Neutrophils # (auto) 2.9 10 ^3/uL (1.6-8.6); Neutrophils % (auto) 74.8 % (37.0-80.0); Red Cell Distribution Width 21.2 % (11.8-14.3)
[2022-01-10 14:06] LABS: Albumin 1.5 g/dL (3.4-5.0); Calcium 7.7 mg/dL (8.5-10.1); Potassium 3.6 mmol/L (3.5-5.1)
[2022-01-10 14:09] LABS: Bilirubin, Total 0.4 mg/dL (0.2-1.0); Phosphorus 2.1 mg/dL (2.5-4.90); Total Protein 4.5 g/dL (6.4-8.2)
[2022-01-10] MEDS ORDERED: SODIUM PHOSPHATES 40 MEQ in D5W 5% 250 ML IV ONE (15:00)
[2022-01-10 16:45] VITALS: BP 134/91
[2022-01-10 22:00] VITALS: BP 139/95
[2022-01-11 05:00] VITALS: BP 136/87
[2022-01-11 05:06] LABS: Potassium 3.7 mmol/L (3.5-5.1)
[2022-01-11 05:12] LABS: Albumin 1.5 g/dL (3.4-5.0); BUN/Creatinine Ratio 106.3; Bilirubin, Total 0.4 mg/dL (0.2-1.0); Calcium 7.3 mg/dL (8.5-10.1); Magnesium 1.6 mg/dL (1.6-2.6); Phosphorus 3.1 mg/dL (2.5-4.90); Total Protein 4.2 g/dL (6.4-8.2)
[2022-01-11] MEDS ORDERED: MAGNESIUM OXIDE 400 MG TAB PO ONE (07:00)
[2022-01-11] MEDS: FAMOTIDINE INJECTION 40 MG in SODIUM CHL 0.9% 100 ML IV SCH ×2 (08:41→10:00)
[2022-01-11] MEDS: LACTULOSE 20Gm/30ML SOLN PO SCH ×2 (08:41→22:56)
[2022-01-11] MEDS: levoFLOXacin 500MG 100 ML IV SCH (08:41)
[2022-01-11] MEDS: DOCUSATE SOD 100 MG CAP PO SCH ×2 (08:42→22:56)
[2022-01-11 09:00] VITALS: BP 118/85
[2022-01-11 10:06] LABS: Basophils # (auto) 0 10 ^3/uL (0-0.2); Eosinophils # (auto) 0 10 ^3/uL (0-0.8); Hemoglobin 10.4 g/dL (13.5-17.5); Monocytes # (auto) 0.2 10 ^3/uL (0-1.3); Neutrophils # (auto) 3.2 10 ^3/uL (1.6-8.6); White Blood Cell 4.1 10^3/uL (4.4-10.8)
[2022-01-11 10:07] LABS: Basophils % (auto) 0.8 % (0.0-2.0); Eosinophils % (auto) 0.3 % (0.0-7.0); Hematocrit 31.9 % (41.0-53.0); Lymphocytes # (auto) 0.6 10 ^3/uL (0.4-5.4); Lymphocytes % (auto) 15.6 % (10.0-50.0); Mean Corpuscular Hgb Conc. 32.6 g/dL (32.0-36.0); Mean Corpuscular Volume 76.6 fL (80.0-100.0); Monocytes % (auto) 4.1 % (0.0-12.0); Neutrophils % (auto) 79.2 % (37.0-80.0); Red Blood Cells 4.16 10^6/uL (4.5-5.90)
[2022-01-11 10:15] LABS: Red Cell Distribution Width 21.4 % (11.8-14.3)
[2022-01-11 10:39] LABS: Potassium 3.5 mmol/L (3.5-5.1)
[2022-01-11 10:49] LABS: Albumin 1.6 g/dL (3.4-5.0); Bilirubin, Total 0.4 mg/dL (0.2-1.0); Calcium 7.4 mg/dL (8.5-10.1); Magnesium 1.6 mg/dL (1.6-2.6); Phosphorus 2.6 mg/dL (2.5-4.90); Total Protein 4.3 g/dL (6.4-8.2)
[2022-01-11 13:00] VITALS: BP 131/89
[2022-01-11 17:20] VITALS: BP 134/89
[2022-01-11 22:00] VITALS: BP 130/91
[2022-01-12 05:00] VITALS: BP 135/77
[2022-01-12 06:50] LABS: Basophils # (auto) 0 10 ^3/uL (0-0.2); Eosinophils # (auto) 0 10 ^3/uL (0-0.8); Lymphocytes # (auto) 0.6 10 ^3/uL (0.4-5.4); Monocytes # (auto) 0.3 10 ^3/uL (0-1.3); Neutrophils # (auto) 4.2 10 ^3/uL (1.6-8.6); White Blood Cell 5.1 10^3/uL (4.4-10.8)
[2022-01-12 06:53] LABS: Basophils % (auto) 0.7 % (0.0-2.0); Eosinophils % (auto) 0.2 % (0.0-7.0); Hematocrit 28.7 % (41.0-53.0); Hemoglobin 9.3 g/dL (13.5-17.5); Lymphocytes % (auto) 10.8 % (10.0-50.0); Mean Corpuscular Hgb Conc. 32.5 g/dL (32.0-36.0); Mean Corpuscular Volume 76.8 fL (80.0-100.0); Monocytes % (auto) 5.2 % (0.0-12.0); Neutrophils % (auto) 83.1 % (37.0-80.0); Nucleated Red Blood Cells % 0.2 %; Red Blood Cells 3.73 10^6/uL (4.5-5.90)
[2022-01-12 07:09] LABS: Albumin 1.5 g/dL (3.4-5.0); Calcium 7.8 mg/dL (8.5-10.1); Magnesium 1.8 mg/dL (1.6-2.6)
[2022-01-12 07:12] LABS: BUN/Creatinine Ratio 31.8; Bilirubin, Total 0.3 mg/dL (0.2-1.0); Phosphorus 2.2 mg/dL (2.5-4.90); Total Protein 4.6 g/dL (6.4-8.2)
[2022-01-12 07:45] LABS: Red Cell Distribution Width 21.8 % (11.8-14.3)
[2022-01-12 08:15] VITALS: BP 142/86
[2022-01-12] MEDS: LACTULOSE 20Gm/30ML SOLN PO SCH ×2 (09:58→20:27)
[2022-01-12] MEDS: DOCUSATE SOD 100 MG CAP PO SCH ×2 (09:58→20:27)
[2022-01-12] MEDS: levoFLOXacin 500MG 100 ML IV SCH (09:58)
[2022-01-12] MEDS: FAMOTIDINE INJECTION 40 MG in SODIUM CHL 0.9% 100 ML IV SCH (11:18)
[2022-01-12 12:10] VITALS: BP 140/94
[2022-01-12 16:10] VITALS: BP 143/88
[2022-01-13 05:00] VITALS: BP 149/93
[2022-01-13 08:00] LABS: Albumin 1.4 g/dL (3.4-5.0); Bilirubin, Total 0.4 mg/dL (0.2-1.0); Calcium 7.5 mg/dL (8.5-10.1); Magnesium 2.1 mg/dL (1.6-2.6); Phosphorus 2.4 mg/dL (2.5-4.90); Potassium 4.4 mmol/L (3.5-5.1); Total Protein 4.5 g/dL (6.4-8.2)
[2022-01-13 08:10] VITALS: BP 127/88
[2022-01-13 09:08] LABS: Basophils # (auto) 0 10 ^3/uL (0-0.2); Eosinophils # (auto) 0 10 ^3/uL (0-0.8); Eosinophils % (auto) 0.3 % (0.0-7.0); Monocytes # (auto) 0.3 10 ^3/uL (0-1.3); Neutrophils # (auto) 3.6 10 ^3/uL (1.6-8.6)
[2022-01-13 09:10] LABS: Basophils % (auto) 1.1 % (0.0-2.0); Hemoglobin 10.7 g/dL (13.5-17.5); Lymphocytes # (auto) 0.6 10 ^3/uL (0.4-5.4); Lymphocytes % (auto) 13.2 % (10.0-50.0); Mean Corpuscular Hemoglobin 25.1 pg (28.0-32.0); Mean Corpuscular Hgb Conc. 31.6 g/dL (32.0-36.0); Mean Corpuscular Volume 79.5 fL (80.0-100.0); Monocytes % (auto) 6.2 % (0.0-12.0); Neutrophils % (auto) 79.2 % (37.0-80.0); Nucleated Red Blood Cells % 0.1 %; Red Blood Cells 4.27 10^6/uL (4.5-5.90); Red Cell Distribution Width 21.5 % (11.8-14.3); White Blood Cell 4.6 10^3/uL (4.4-10.8)
[2022-01-13] MEDS: DOCUSATE SOD 100 MG CAP PO SCH ×2 (10:06→22:28)
[2022-01-13] MEDS: LACTULOSE 20Gm/30ML SOLN PO SCH ×2 (10:06→22:28)
[2022-01-13] MEDS: levoFLOXacin 500MG 100 ML IV SCH (10:07)
[2022-01-13] MEDS: FAMOTIDINE INJECTION 40 MG in SODIUM CHL 0.9% 100 ML IV SCH (10:08)
[2022-01-13 12:00] VITALS: BP 147/89
[2022-01-13 16:00] VITALS: BP 151/90
[2022-01-13 16:02] VITALS: BP 147/89
[2022-01-13 22:00] VITALS: BP 154/90
[2022-01-14 05:00] VITALS: BP 152/89
[2022-01-14 08:31] LABS: Basophils # (auto) 0 10 ^3/uL (0-0.2); Eosinophils # (auto) 0 10 ^3/uL (0-0.8); Eosinophils % (auto) 0.3 % (0.0-7.0); Hematocrit 28.2 % (41.0-53.0); Hemoglobin 8.9 g/dL (13.5-17.5); Lymphocytes # (auto) 0.7 10 ^3/uL (0.4-5.4); Lymphocytes % (auto) 17.7 % (10.0-50.0); Mean Corpuscular Hemoglobin 25.2 pg (28.0-32.0); Mean Corpuscular Hgb Conc. 31.8 g/dL (32.0-36.0); Mean Corpuscular Volume 79.3 fL (80.0-100.0); Monocytes # (auto) 0.4 10 ^3/uL (0-1.3); Monocytes % (auto) 10.3 % (0.0-12.0); Neutrophils # (auto) 2.7 10 ^3/uL (1.6-8.6); Neutrophils % (auto) 70.7 % (37.0-80.0); Nucleated Red Blood Cells % 0.2 %; Red Blood Cells 3.55 10^6/uL (4.5-5.90); Red Cell Distribution Width 21.7 % (11.8-14.3); White Blood Cell 3.8 10^3/uL (4.4-10.8)
[2022-01-14 09:00] VITALS: BP 147/83
[2022-01-14] MEDS: FAMOTIDINE INJECTION 40 MG in SODIUM CHL 0.9% 100 ML IV SCH (10:00)
[2022-01-14] MEDS: levoFLOXacin 500MG 100 ML IV SCH (10:00)
[2022-01-14] MEDS ORDERED: FOLIC ACID 1 MG TAB PO ONE (10:45)
[2022-01-14 12:37] VITALS: BP 151/89
[2022-01-14] MEDS: DOCUSATE SOD 100 MG CAP PO SCH (12:38)
[2022-01-14] MEDS: LACTULOSE 20Gm/30ML SOLN PO SCH (12:38)
[2022-01-14 16:13] VITALS: BP 146/82
[2022-01-15] MEDS ORDERED: FOLIC ACID 1 MG TAB PO SCH (10:00)
== END 2022-01-14 19:21 | DRG 871 ==
LOC: EDBD 18:37 → ER 18:37 → OVERFLOW 21:43 → EAST 12-30 00:33 → TELE-EAST 12-31 14:37 → ICU WEST 01-01 18:19 → DOU IN ICU 01-02 23:36 → TELE-WESTW 01-05 17:13 → WEST WING 01-06 11:42
PROVIDERS: ADMIT Nurse Practitioner; ATTEND Internal Medicine
PROC: 30233N1 Transfusion of Nonautologous Red Blood Cells into Peripheral Vein, Percutaneous Approach (ICD-10-PCS; 2022-01-01)
PROC: 05HF33Z Insertion of Infusion Device into Left Cephalic Vein, Percutaneous Approach (ICD-10-PCS; principal; 2022-01-05)
PROC: B54NZZA Ultrasonography of Left Upper Extremity Veins, Guidance (ICD-10-PCS; 2022-01-05)
DX: A02.1 Salmonella sepsis (principal); E43 Unspecified severe protein-calorie malnutrition; G93.41 Metabolic encephalopathy; N17.0 Acute kidney failure with tubular necrosis; K72.00 Acute and subacute hepatic failure without coma; D61.818 Other pancytopenia; E87.0 Hyperosmolality and hypernatremia; G82.20 Paraplegia, unspecified; Z20.822 Contact with and (suspected) exposure to COVID-19; K56.41 Fecal impaction; M62.40 Contracture of muscle, unspecified site; L89.152 Pressure ulcer of sacral region, stage 2; R74.01 Elevation of levels of liver transaminase levels; K80.20 Calculus of gallbladder without cholecystitis without obstruction; D50.9 Iron deficiency anemia, unspecified; E86.0 Dehydration; E88.09 Other disorders of plasma-protein metabolism, not elsewhere classified; Z87.820 Personal history of traumatic brain injury; Z74.01 Bed confinement status; Z80.0 Family history of malignant neoplasm of digestive organs; Z83.3 Family history of diabetes mellitus; Z68.21 Body mass index [BMI] 21.0-21.9, adult
CPT/HCPCS: 36415; 70450; 71045; 72040; 74176; 76705; 76775; 80053; 80061; 80074; 80307; 81001; 82040; 82105; 82140; 82270; 82607; 82668; 82728; 82746; 82962; 83010; 83540; 83550; 83605; 83615; 83735; 83880; 84100; 84439; 84443; 84478; 84484; 85007; 85025; 85027; 85045; 85610; 85652; 85730; 86038; 86141; 86431; 86850; 86880; 86900; 86901; 86920; 87040; 87077; 87081; 87186; 92610; 93970; C9113; G0378; J0696; J1815; J1956; J3480; J3490; J7060

== ENCOUNTER 2022-06-02 16:23 | Inpatient (IN) | payer MEDICARE, MEDICAID ==
[~2022-06-02] VITALS: Ht 170.2 cm; Wt 63.0 kg
[2022-06-02 18:01] LABS: Basophils # (auto) 0 10 ^3/uL (0-0.2); Mean Corpuscular Hemoglobin 20.8 pg (28.0-32.0)
[2022-06-02 18:02] LABS: Basophils % (auto) 0.9 % (0.0-2.0); Eosinophils # (auto) 0.2 10 ^3/uL (0-0.8); Eosinophils % (auto) 4.1 % (0.0-7.0); Hematocrit 26.3 % (41.0-53.0); Hemoglobin 7.9 g/dL (13.5-17.5); Lymphocytes # (auto) 0.9 10 ^3/uL (0.4-5.4); Lymphocytes % (auto) 21.1 % (10.0-50.0); Mean Corpuscular Volume 69.4 fL (80.0-100.0); Monocytes # (auto) 0.6 10 ^3/uL (0-1.3); Monocytes % (auto) 12.5 % (0.0-12.0); Neutrophils # (auto) 2.7 10 ^3/uL (1.6-8.6); Neutrophils % (auto) 61.4 % (37.0-80.0); Red Blood Cells 3.79 10^6/uL (4.5-5.90); White Blood Cell 4.5 10^3/uL (4.4-10.8)
[2022-06-02 18:08] LABS: Red Cell Distribution Width 20.4 % (11.8-14.3)
[2022-06-02] MEDS ORDERED: SODIUM CHLORIDE 0.9% 1,000 ML IV ONE (18:15)
[2022-06-02 18:36] LABS: Albumin 3.1 g/dL (3.4-5.0); BUN/Creatinine Ratio 46.2; Calcium 9.2 mg/dL (8.5-10.1); Potassium 4.3 mmol/L (3.5-5.1)
[2022-06-02 18:39] LABS: Bilirubin, Total 0.2 mg/dL (0.2-1.0); Total Protein 6.9 g/dL (6.4-8.2)
[2022-06-02] MEDS ORDERED: cefTRIAXone 1GM/50ML D5W 50 ML IV ONE (23:30)
[2022-06-03] MEDS ORDERED: AZITHROMYCIN 500MG/ 250ML 250 ML IV ONE (00:45)
[2022-06-03] MEDS ORDERED: ACETAMINOPHEN 325 MG TAB PO PRN (00:45)
[2022-06-03] MEDS ORDERED: ONDANSETRON HCL 4 MG/2 ML VIAL IV PRN (00:45)
[2022-06-03] MEDS ORDERED: TEMAZEPAM 15 MG CAP PO PRN (00:45)
[2022-06-03] MEDS ORDERED: ALBUMIN 5% 250 ML IV ONE (04:15)
[2022-06-03] MEDS: ENOXAPARIN SOD 40 MG/0.4 ML SYRINGE SC SCH (11:20)
[2022-06-03 18:05] LABS: % Iron Saturation 6.5 % (20-55)
[2022-06-03] MEDS: cefTRIAXone 1GM/50ML D5W 50 ML IV SCH (22:33)
[2022-06-03] MEDS: AZITHROMYCIN 500MG/ 250ML 250 ML IV SCH (23:13)
[2022-06-04 07:28] LABS: Basophils # (auto) 0.1 10 ^3/uL (0-0.2); Eosinophils % (auto) 4.3 % (0.0-7.0); Monocytes # (auto) 0.5 10 ^3/uL (0-1.3)
[2022-06-04 07:38] LABS: BUN/Creatinine Ratio 43.2; Calcium 8.9 mg/dL (8.5-10.1); Potassium 4.1 mmol/L (3.5-5.1)
[2022-06-04 08:47] LABS: Basophils % (auto) 1.3 % (0.0-2.0); Eosinophils # (auto) 0.3 10 ^3/uL (0-0.8); Hemoglobin 7.9 g/dL (13.5-17.5); Lymphocytes # (auto) 1.1 10 ^3/uL (0.4-5.4); Lymphocytes % (auto) 17.6 % (10.0-50.0); Mean Corpuscular Hemoglobin 20.5 pg (28.0-32.0); Mean Corpuscular Hgb Conc. 28.3 g/dL (32.0-36.0); Mean Corpuscular Volume 72.5 fL (80.0-100.0); Monocytes % (auto) 8.3 % (0.0-12.0); Neutrophils # (auto) 4.2 10 ^3/uL (1.6-8.6); Neutrophils % (auto) 68.5 % (37.0-80.0); Nucleated Red Blood Cells % 0.3 %; Red Blood Cells 3.86 10^6/uL (4.5-5.90); White Blood Cell 6.2 10^3/uL (4.4-10.8)
[2022-06-04 08:49] LABS: Red Cell Distribution Width 21.6 % (11.8-14.3)
[2022-06-04] MEDS: PANTOPRAZOLE 40 MG TAB PO SCH (10:54)
[2022-06-04] MEDS: ENOXAPARIN SOD 40 MG/0.4 ML SYRINGE SC SCH (10:55)
[2022-06-04 13:58] VITALS: BP 113/77
[2022-06-04 17:00] VITALS: BP 121/76
[2022-06-04 20:00] VITALS: BP 113/77
[2022-06-04 22:48] VITALS: BP 113/77
[2022-06-04] MEDS: AZITHROMYCIN 500MG/ 250ML 250 ML IV SCH (22:57)
[2022-06-04] MEDS: cefTRIAXone 1GM/50ML D5W 50 ML IV SCH (22:57)
[2022-06-05] VITALS (7 sets, daily range): BP systolic 104–131; BP diastolic 64–90
[2022-06-05] MEDS: ENOXAPARIN SOD 40 MG/0.4 ML SYRINGE SC SCH (09:26)
[2022-06-05] MEDS: PANTOPRAZOLE 40 MG TAB PO SCH (09:26)
[2022-06-05 11:56] LABS: Basophils # (auto) 0 10 ^3/uL (0-0.2); Eosinophils # (auto) 0.1 10 ^3/uL (0-0.8); Mean Corpuscular Hemoglobin 20.5 pg (28.0-32.0); Mean Corpuscular Volume 68.3 fL (80.0-100.0); Neutrophils # (auto) 3.2 10 ^3/uL (1.6-8.6); Nucleated Red Blood Cells % 0.1 %
[2022-06-05 11:58] LABS: Basophils % (auto) 0.9 % (0.0-2.0); Eosinophils % (auto) 2.6 % (0.0-7.0); Hematocrit 29.4 % (41.0-53.0); Hemoglobin 8.9 g/dL (13.5-17.5); Lymphocytes % (auto) 19.4 % (10.0-50.0); Mean Corpuscular Hgb Conc. 30.1 g/dL (32.0-36.0); Monocytes # (auto) 0.6 10 ^3/uL (0-1.3); Monocytes % (auto) 11.2 % (0.0-12.0); Neutrophils % (auto) 65.9 % (37.0-80.0); Red Blood Cells 4.31 10^6/uL (4.5-5.90); White Blood Cell 4.9 10^3/uL (4.4-10.8)
[2022-06-05] MEDS: cefTRIAXone 1GM/50ML D5W 50 ML IV SCH (22:34)
[2022-06-05] MEDS: AZITHROMYCIN 500MG/ 250ML 250 ML IV SCH (22:41)
[2022-06-06 05:00] VITALS: BP 97/66
[2022-06-06 07:37] VITALS: BP 131/90
[2022-06-06 09:00] VITALS: BP 105/55
[2022-06-06] MEDS: ENOXAPARIN SOD 40 MG/0.4 ML SYRINGE SC SCH (09:10)
[2022-06-06] MEDS: PANTOPRAZOLE 40 MG TAB PO SCH (09:10)
[2022-06-06] MEDS: MUPIROCIN 2% OINT 15gm or 22gm FOR MRSA NARES EACHNOSTRI SCH ×2 (09:24→22:09)
[2022-06-06 13:22] VITALS: BP 93/59
[2022-06-06 16:49] VITALS: BP 100/62
[2022-06-06 22:00] VITALS: BP 113/73
[2022-06-06] MEDS: cefTRIAXone 1GM/50ML D5W 50 ML IV SCH (22:10)
[2022-06-06] MEDS: AZITHROMYCIN 500MG/ 250ML 250 ML IV SCH (22:49)
[2022-06-07 05:00] VITALS: BP 97/55
[2022-06-07] MEDS: ENOXAPARIN SOD 40 MG/0.4 ML SYRINGE SC SCH (08:47)
[2022-06-07] MEDS: MUPIROCIN 2% OINT 15gm or 22gm FOR MRSA NARES EACHNOSTRI SCH (08:47)
[2022-06-07] MEDS: PANTOPRAZOLE 40 MG TAB PO SCH (08:47)
[2022-06-07 09:05] VITALS: BP 103/66
[2022-06-07 12:30] VITALS: BP 97/65
[2022-06-07 17:00] VITALS: BP 110/63
== END 2022-06-07 17:50 | DRG 811 ==
LOC: ER 16:23 → EDBD 16:23 → OVERFLOW 06-03 00:44 → CENTRAL 06-04 15:14
PROVIDERS: ADMIT Nurse Practitioner; ATTEND Family Medicine
DX: D50.9 Iron deficiency anemia, unspecified (principal); J18.9 Pneumonia, unspecified organism; D63.8 Anemia in other chronic diseases classified elsewhere; K21.9 Gastro-esophageal reflux disease without esophagitis; Z20.822 Contact with and (suspected) exposure to COVID-19; Z83.3 Family history of diabetes mellitus; Z80.0 Family history of malignant neoplasm of digestive organs; Z87.820 Personal history of traumatic brain injury; Z74.01 Bed confinement status
CPT/HCPCS: 36415; 71045; 80048; 80053; 82270; 83540; 83550; 85025; 86850; 86900; 86901; 87081; 87426; 93005; 96365; G0378; J0696

== ENCOUNTER 2022-10-24 18:48 | Inpatient (IN) | payer MEDICARE, MEDICAID ==
[~2022-10-24] VITALS: Ht 170.2 cm; Wt 73.1 kg
[2022-10-24] MEDS ORDERED: ONDANSETRON HCL 4 MG/2 ML VIAL IV ONE (19:15)
[2022-10-24] MEDS ORDERED: OCTREOTIDE ACETATE 500 MCG in SODIUM CHL 0.9% 99 ML IV SCH (19:15)
[2022-10-24] MEDS ORDERED: PANTOPRAZOLE 40mg/50ML NS AE 50 ML IV ONE (19:15)
[2022-10-24] MEDS ORDERED: OCTREOTIDE ACETATE 100 MCG in SODIUM CHL 0.9% 50 ML IV ONE (19:15)
[2022-10-24 19:43] LABS: Eosinophils # (auto) 0.1 10 ^3/uL (0-0.8); Hematocrit 29.3 % (41.0-53.0); Monocytes # (auto) 0.6 10 ^3/uL (0-1.3); Neutrophils % (auto) 77.9 % (37.0-80.0)
[2022-10-24 19:45] LABS: Basophils # (auto) 0.1 10 ^3/uL (0-0.2); Basophils % (auto) 0.6 % (0.0-2.0); Eosinophils % (auto) 1.3 % (0.0-7.0); Lymphocytes # (auto) 1.1 10 ^3/uL (0.4-5.4); Lymphocytes % (auto) 13.6 % (10.0-50.0); Mean Corpuscular Hgb Conc. 30.6 g/dL (32.0-36.0); Mean Corpuscular Volume 65.4 fL (80.0-100.0); Monocytes % (auto) 6.6 % (0.0-12.0); Neutrophils # (auto) 6.5 10 ^3/uL (1.6-8.6); Red Blood Cells 4.48 10^6/uL (4.5-5.90); Red Cell Distribution Width 23.2 % (11.8-14.3); White Blood Cell 8.4 10^3/uL (4.4-10.8)
[2022-10-24 20:00] LABS: Albumin 3.5 g/dL (3.4-5.0); Calcium 8.6 mg/dL (8.5-10.1); Magnesium 2.2 mg/dL (1.6-2.6); Partial Thromboplastin Time 28.5 sec (24.6-33.4); Potassium 4.4 mmol/L (3.5-5.1)
[2022-10-24 20:03] LABS: BUN/Creatinine Ratio 54.4 (10.0-20.0); Bilirubin, Total 0.2 mg/dL (0.2-1.0); Total Protein 7.7 g/dL (6.4-8.2)
[2022-10-24] MEDS ORDERED: ONDANSETRON HCL 4 MG/2 ML VIAL IV PRN (23:45)
[2022-10-24] MEDS ORDERED: AZITHROMYCIN 500MG/ 250ML 250 ML IV ONE (23:45)
[2022-10-25] MEDS: D5W/SOD CHLO 0.9% 1,000 ML IV SCH ×2 (01:13→13:05)
[2022-10-25 01:18] LABS: Hemoglobin 8.7 g/dL (13.5-17.5)
[2022-10-25 01:19] LABS: Hematocrit 27.5 % (41.0-53.0)
[2022-10-25 03:26] LABS: Urine Amorphous Crystal FEW /hpf (None Seen); Urine Bacteria FEW /hpf (None Seen); Urine Blood 3+ /uL (Negative); Urine Hyaline Cast FEW /lpf (0 - 2); Urine Specific Gravity 1.007 (1.001-1.035); Urine WBC <1 /hpf (0 - 3)
[2022-10-25 06:36] LABS: Albumin 3.5 g/dL (3.4-5.0); Basophils # (auto) 0 10 ^3/uL (0-0.2); Basophils % (auto) 0.8 % (0.0-2.0); Calcium 8.7 mg/dL (8.5-10.1); Eosinophils # (auto) 0.2 10 ^3/uL (0-0.8); Hematocrit 27.9 % (41.0-53.0); Hemoglobin 8.6 g/dL (13.5-17.5); Lymphocytes # (auto) 1.5 10 ^3/uL (0.4-5.4); Mean Corpuscular Volume 67.4 fL (80.0-100.0); Monocytes # (auto) 0.4 10 ^3/uL (0-1.3); Neutrophils # (auto) 3.2 10 ^3/uL (1.6-8.6); Nucleated Red Blood Cells % 0.2 %; Potassium 4.3 mmol/L (3.5-5.1); Red Blood Cells 4.14 10^6/uL (4.5-5.90); White Blood Cell 5.3 10^3/uL (4.4-10.8)
[2022-10-25 06:39] LABS: Eosinophils % (auto) 3.5 % (0.0-7.0); Lymphocytes % (auto) 27.5 % (10.0-50.0); Mean Corpuscular Hemoglobin 20.7 pg (28.0-32.0); Mean Corpuscular Hgb Conc. 30.7 g/dL (32.0-36.0); Monocytes % (auto) 7.4 % (0.0-12.0); Neutrophils % (auto) 60.8 % (37.0-80.0)
[2022-10-25 06:41] LABS: BUN/Creatinine Ratio 46.2 (10.0-20.0); Bilirubin, Total 0.4 mg/dL (0.2-1.0); Total Protein 7.3 g/dL (6.4-8.2)
[2022-10-25 06:53] LABS: Red Cell Distribution Width 22.7 % (11.8-14.3)
[2022-10-25] MEDS: AZITHROMYCIN 500MG/ 250ML 250 ML IV SCH (10:07)
[2022-10-25] MEDS: PANTOPRAZOLE 40 MG/10 ML VIAL INJ IV SCH ×2 (10:08→21:55)
[2022-10-25] MEDS ORDERED: LIDOCAINE 2% JELLY 11ml (GLYDO) UR ONE (11:00)
[2022-10-25] MEDS ORDERED: cefTRIAXone 1GM/50ML D5W 50 ML IV ONE (13:45)
[2022-10-26 05:40] LABS: Basophils # (auto) 0 10 ^3/uL (0-0.2); Eosinophils # (auto) 0.1 10 ^3/uL (0-0.8); Hemoglobin 8.6 g/dL (13.5-17.5); Monocytes # (auto) 0.5 10 ^3/uL (0-1.3)
[2022-10-26 05:44] LABS: Basophils % (auto) 0.4 % (0.0-2.0); Eosinophils % (auto) 2.2 % (0.0-7.0); Hematocrit 27.3 % (41.0-53.0); Lymphocytes % (auto) 19.4 % (10.0-50.0); Mean Corpuscular Hemoglobin 21.1 pg (28.0-32.0); Mean Corpuscular Hgb Conc. 31.4 g/dL (32.0-36.0); Mean Corpuscular Volume 67.1 fL (80.0-100.0); Monocytes % (auto) 9.2 % (0.0-12.0); Neutrophils # (auto) 3.7 10 ^3/uL (1.6-8.6); Neutrophils % (auto) 68.8 % (37.0-80.0); Nucleated Red Blood Cells % 0.4 %; Red Blood Cells 4.06 10^6/uL (4.5-5.90); White Blood Cell 5.4 10^3/uL (4.4-10.8)
[2022-10-26 05:55] LABS: Albumin 3.4 g/dL (3.4-5.0); Calcium 8.5 mg/dL (8.5-10.1); Potassium 3.9 mmol/L (3.5-5.1)
[2022-10-26 05:57] LABS: Red Cell Distribution Width 23.1 % (11.8-14.3)
[2022-10-26 06:01] LABS: Bilirubin, Total 0.5 mg/dL (0.2-1.0); Total Protein 7.2 g/dL (6.4-8.2)
[2022-10-26] MEDS: PANTOPRAZOLE 40 MG/10 ML VIAL INJ IV SCH ×2 (09:14→23:02)
[2022-10-26] MEDS: cefTRIAXone 1GM/50ML D5W 50 ML IV SCH (09:14)
[2022-10-26] MEDS: AZITHROMYCIN 500MG/ 250ML 250 ML IV SCH (10:02)
[2022-10-26 23:33] VITALS: BP 117/82
[2022-10-27] VITALS (7 sets, daily range): BP systolic 99–144; BP diastolic 57–102
[2022-10-27 05:48] LABS: Basophils # (auto) 0 10 ^3/uL (0-0.2); Eosinophils # (auto) 0.1 10 ^3/uL (0-0.8); Hemoglobin 8.7 g/dL (13.5-17.5); Lymphocytes # (auto) 0.8 10 ^3/uL (0.4-5.4); Monocytes # (auto) 0.3 10 ^3/uL (0-1.3)
[2022-10-27 05:51] LABS: Basophils % (auto) 0.8 % (0.0-2.0); Eosinophils % (auto) 1.4 % (0.0-7.0); Hematocrit 27.4 % (41.0-53.0); Mean Corpuscular Hgb Conc. 31.7 g/dL (32.0-36.0); Mean Corpuscular Volume 66.1 fL (80.0-100.0); Monocytes % (auto) 7.8 % (0.0-12.0); Neutrophils # (auto) 3.1 10 ^3/uL (1.6-8.6); Nucleated Red Blood Cells % 0.2 %; Red Blood Cells 4.15 10^6/uL (4.5-5.90); White Blood Cell 4.4 10^3/uL (4.4-10.8)
[2022-10-27 05:52] LABS: Red Cell Distribution Width 22.7 % (11.8-14.3)
[2022-10-27 06:09] LABS: Potassium 3.7 mmol/L (3.5-5.1)
[2022-10-27 06:25] LABS: Albumin 3.4 g/dL (3.4-5.0); BUN/Creatinine Ratio 40.6 (10.0-20.0); Bilirubin, Total 0.5 mg/dL (0.2-1.0); Calcium 8.6 mg/dL (8.5-10.1); Total Protein 7.1 g/dL (6.4-8.2)
[2022-10-27] MEDS: PANTOPRAZOLE 40 MG/10 ML VIAL INJ IV SCH ×2 (10:51→22:32)
[2022-10-27] MEDS: cefTRIAXone 1GM/50ML D5W 50 ML IV SCH (10:51)
[2022-10-27] MEDS: AZITHROMYCIN 500MG/ 250ML 250 ML IV SCH (10:52)
[2022-10-28 05:00] VITALS: BP 114/72
[2022-10-28 07:45] VITALS: BP 126/69
[2022-10-28] MEDS: cefTRIAXone 1GM/50ML D5W 50 ML IV SCH (08:54)
[2022-10-28] MEDS: AZITHROMYCIN 500MG/ 250ML 250 ML IV SCH (08:59)
[2022-10-28 09:00] VITALS: BP 126/69
[2022-10-28] MEDS: PANTOPRAZOLE 40 MG/10 ML VIAL INJ IV SCH (09:00)
[2022-10-28 13:00] VITALS: BP 134/108
[2022-10-28 16:52] VITALS: BP 133/76
== END 2022-10-28 18:00 | DRG 377 ==
LOC: EDBD 18:48 → ER 18:50 → OVERFLOW 23:54 → EAST 10-26 22:24
PROVIDERS: ADMIT Nurse Practitioner; ATTEND Internal Medicine
DX: K92.2 Gastrointestinal hemorrhage, unspecified (principal); E43 Unspecified severe protein-calorie malnutrition; G82.50 Quadriplegia, unspecified; K21.9 Gastro-esophageal reflux disease without esophagitis; Z20.822 Contact with and (suspected) exposure to COVID-19; Z87.820 Personal history of traumatic brain injury; Z68.25 Body mass index [BMI] 25.0-25.9, adult; Z74.01 Bed confinement status; Z80.0 Family history of malignant neoplasm of digestive organs; Z83.3 Family history of diabetes mellitus
CPT/HCPCS: 36415; 71250; 74176; 80053; 81001; 82040; 82270; 83690; 83735; 83880; 84484; 85014; 85018; 85025; 85379; 85610; 85730; 86850; 86900; 86901; 87081; 87426; 93005; 96365; 96367; 96375; C9113; G0378; J0696; J2405

== ENCOUNTER 2023-02-15 20:18 | Emergency (ER) | payer MEDICARE, MEDICAID ==
[~2023-02-15] VITALS: Ht 157.5 cm; Wt 59.0 kg
[2023-02-15] MEDS ORDERED: PANTOPRAZOLE 40 MG/10 ML VIAL INJ IV ONE (21:00)
[2023-02-15 21:17] VITALS: PULSE 80; RESP 14; O2SAT 95
[2023-02-15 21:44] LABS: Basophils # (auto) 0 10 ^3/uL (0-0.2); Basophils % (auto) 0.5 % (0.0-2.0); Eosinophils # (auto) 0.2 10 ^3/uL (0-0.8); Eosinophils % (auto) 2.6 % (0.0-7.0); Hematocrit 33.8 % (41.0-53.0); Hemoglobin 10.4 g/dL (13.5-17.5); Lymphocytes % (auto) 16.7 % (10.0-50.0); Mean Corpuscular Hemoglobin 22.2 pg (28.0-32.0); Mean Corpuscular Hgb Conc. 30.7 g/dL (32.0-36.0); Mean Corpuscular Volume 72.5 fL (80.0-100.0); Monocytes # (auto) 0.7 10 ^3/uL (0-1.3); Monocytes % (auto) 10.8 % (0.0-12.0); Neutrophils # (auto) 4.3 10 ^3/uL (1.6-8.6); Neutrophils % (auto) 69.4 % (37.0-80.0); Nucleated Red Blood Cells % 0.2 %; Red Blood Cells 4.66 10^6/uL (4.5-5.90); White Blood Cell 6.3 10^3/uL (4.4-10.8)
[2023-02-15 21:45] LABS: Red Cell Distribution Width 23.2 % (11.8-14.3)
[2023-02-15 22:03] LABS: Alanine Aminotransferase 15 U/L (7-40); Albumin 4.2 g/dL (3.2-4.8); Alkaline Phosphatase 104 U/L (46-116); Anion Gap 5 (5-15); Aspartate Aminotransferase 17 U/L (13-40); BUN/Creatinine Ratio 30.5 (10.0-20.0); Blood Urea Nitrogen 18 mg/dL (9-23); Calcium 9.4 mg/dL (8.7-10.4); Carbon Dioxide 26 mmol/L (20-30); Chloride 105 mmol/L (98-107); Glucose 100 mg/dL (74-106); Magnesium 1.8 mg/dL (1.6-2.6); Potassium 4.3 mmol/L (3.5-5.1); Sodium 136 mmol/L (136-145)
[2023-02-15 22:04] LABS: Bilirubin, Total 0.2 mg/dL (0.2-1.0); INR 0.99 (0.9-1.15); Partial Thromboplastin Time 29.1 SEC (24.5-34.5); Prothrombin Time 10.4 sec (9.3-11.8); Total Protein 7.3 g/dL (5.7-8.2)
[2023-02-16 05:30] VITALS: PULSE 90; RESP 20; O2SAT 96
[2023-02-16 10:52] VITALS: PULSE 62; RESP 12; O2SAT 93
[2023-02-16 14:00] VITALS: TEMP 97.9
[2023-02-16 18:00] VITALS: BP 112/62; PULSE 70; RESP 12; O2SAT 95
== END 2023-02-16 18:47 | disposition home or self-care (01) ==
LOC: EDBD 20:18 → ER 20:20
DX: K92.2 Gastrointestinal hemorrhage, unspecified (principal); K21.9 Gastro-esophageal reflux disease without esophagitis; Z86.2 Personal history of diseases of the blood and blood-forming organs and certain disorders involving the immune mechanism
CPT/HCPCS: 36415; 80053; 83735; 83880; 84484; 85025; 85610; 85730; 86850; 86900; 86901; 93005; 96374; 99285; C9113

== ENCOUNTER 2023-09-16 11:55 | Emergency (ER) | payer MEDICARE, MEDICAID ==
[~2023-09-16] VITALS: Ht 167.6 cm; Wt 59.0 kg
[2023-09-16] MEDS: SODIUM CHLORIDE 0.9% 1,000 ML IV ONE (12:30)
[2023-09-16 12:45] LABS: Basophils # (auto) 0.1 10 ^3/uL (0-0.2); Basophils % (auto) 1.1 % (0.0-2.0); Eosinophils # (auto) 0.3 10 ^3/uL (0-0.8); Eosinophils % (auto) 5.3 % (0.0-7.0); Hematocrit 45.8 % (41.0-53.0); Hemoglobin 14.8 g/dL (13.5-17.5); Lymphocytes # (auto) 0.9 10 ^3/uL (0.4-5.4); Lymphocytes % (auto) 14.6 % (10.0-50.0); Mean Corpuscular Hemoglobin 28.7 pg (28.0-32.0); Mean Corpuscular Hgb Conc. 32.2 g/dL (32.0-36.0); Mean Corpuscular Volume 89.1 fL (80.0-100.0); Monocytes # (auto) 0.6 10 ^3/uL (0-1.3); Monocytes % (auto) 9.2 % (0.0-12.0); Neutrophils # (auto) 4.2 10 ^3/uL (1.6-8.6); Neutrophils % (auto) 69.8 % (37.0-80.0); Nucleated Red Blood Cells % 0.1 %; Red Blood Cells 5.14 10^6/uL (4.5-5.90); Red Cell Distribution Width 17.6 % (11.8-14.3); White Blood Cell 6.1 10^3/uL (4.4-10.8)
[2023-09-16 13:03] LABS: INR 1.03 (0.9-1.15); Partial Thromboplastin Time 29.9 SEC (24.5-34.5); Prothrombin Time 10.9 sec (9.3-11.8)
[2023-09-16 13:21] LABS: Alanine Aminotransferase 29 U/L (7-40); Albumin 4.3 g/dL (3.2-4.8); Alkaline Phosphatase 103 U/L (46-116); Anion Gap 5 (5-15); Aspartate Aminotransferase 23 U/L (13-40); BUN/Creatinine Ratio 26.8 (10.0-20.0); Blood Urea Nitrogen 19 mg/dL (9-23); Calcium 9.8 mg/dL (8.7-10.4); Carbon Dioxide 30 mmol/L (20-30); Chloride 102 mmol/L (98-107); Glucose 97 mg/dL (74-106); Magnesium 1.9 mg/dL (1.6-2.6); Potassium 4.2 mmol/L (3.5-5.1); Sodium 137 mmol/L (136-145)
[2023-09-16 13:22] LABS: Bilirubin, Total 0.4 mg/dL (0.2-1.0); Total Protein 7.1 g/dL (5.7-8.2)
[2023-09-16 14:13] VITALS: PULSE 56; RESP 17; O2SAT 98
[2023-09-16 18:09] LABS: Urine Bacteria None Seen /hpf (None Seen)
[2023-09-16 18:31] LABS: Urine Blood Negative /uL (Negative); Urine Clarity Clear (Clear); Urine Color Light-Yellow (Yellow); Urine Protein, UAD Negative (Negative); Urine Specific Gravity 1.024 (1.001-1.035); Urine Urobilinogen Normal (Negative); Urine WBC <1 /hpf (0 - 3); Urine pH 6.5 (5.0-9.0)
[2023-09-16 20:00] VITALS: TEMP 98.2
[2023-09-16 20:05] VITALS: PULSE 59; RESP 12; O2SAT 94
[2023-09-17 08:20] VITALS: PULSE 55
[2023-09-17 11:30] VITALS: BP 113/69; RESP 17; O2SAT 93
== END 2023-09-16 18:07 | disposition home or self-care (01) ==
LOC: EDBD 11:55 → ER 11:55
DX: R55 Syncope and collapse (principal); K21.9 Gastro-esophageal reflux disease without esophagitis; R07.89 Other chest pain; Z86.2 Personal history of diseases of the blood and blood-forming organs and certain disorders involving the immune mechanism
CPT/HCPCS: 36415; 71045; 71250; 80053; 81001; 83735; 84484; 85025; 85610; 85730; 93005